=== PATIENT | male | born 1960 | race Caucasian/White ===

== ENCOUNTER 2023-12-24 16:44 | Outpatient (CLI) | payer MEDICAID | END 2023-12-24 23:59 | disposition home or self-care (01) | LOC: RAD 16:44 | PROVIDERS: ATTEND Nurse Practitioner Family | DX: R05.3 Chronic cough (principal); I70.0 Atherosclerosis of aorta | CPT/HCPCS: 71046 ==

== ENCOUNTER 2024-04-27 02:37 | Emergency (ER) | payer MEDICAID ==
[~2024-04-27] VITALS: Ht 180.3 cm; Wt 72.5 kg
[2024-04-27 02:40] VITALS: TEMP 98.8
[2024-04-27 03:14] LABS: BASOPHILS # (AUTO) 0.1 X10'3 (0-0.2); BASOPHILS % (AUTO) 0.7 % (0-1); EOSINOPHILS # (AUTO) 0.8 X10'3 (0-0.9); HEMOGLOBIN 15.3 g/dl (14.0-17.9); LYMPHOCYTES # (AUTO) 1.7 X10'3 (1.1-4.8); LYMPHOCYTES % (AUTO) 18.9 % (21-51); MEAN CORPUSCULAR HEMOGLOBIN 31.9 PG (27.0-31.0); MEAN CORPUSCULAR HGB CONC 33.2 g/dL (33.0-36.5); MEAN CORPUSCULAR VOLUME 96.1 FL (78-98); MEAN PLATELET VOLUME 7.4 FL (7.4-10.4); MONOCYTES % (AUTO) 11.1 % (2-12); NEUTROPHILS # (AUTO) 5.3 X10'3 (1.8-7.7); NEUTROPHILS % (AUTO) 60.3 % (42-75); PLATELET COUNT 266 X10'3 (140-440); RED BLOOD COUNT 4.79 X10'6 (4.70-6.10); RED CELL DISTRIBUTION WIDTH 14.8 % (11.5-14.5); WHITE BLOOD COUNT 8.8 X10'3 (4.5-11.0)
[2024-04-27 03:31] LABS: ALBUMIN 3.7 G/DL (3.4-5.0); ANION GAP 13 (8-16); BLOOD UREA NITROGEN 24 MG/DL (7-18); CALCIUM 8.8 MG/DL (8.5-10.1); CHLORIDE 105 MMOL/L (99-107); GLUCOSE 104 MG/DL (70-104); PRO BRAIN NATRIURETIC PEPTIDE 68 PG/ML (0-125); SODIUM 143 MMOL/L (135-145); TOTAL CARBON DIOXIDE 24.6 MMOL/L (24-32); eCRCL 79 ML/MIN; eGFR 76 ML/MIN
[2024-04-27 05:30] VITALS: BP 132/75; PULSE 85; RESP 15; O2SAT 94
[2024-04-27] MEDS ORDERED: FURO-150 PO (06:00)
[2024-04-27] MEDS ORDERED: CEPH-585 PO (06:00)
[2024-04-27] MEDS: cephalexin 250mg capsule PO ONE (06:07)
[2024-05-01] MEDS ORDERED: CEPH500C2 PO (10:14)
[2024-05-01] MEDS ORDERED: FURO20TA4 PO (10:14)
== END 2024-04-27 06:14 | disposition home or self-care (01) ==
LOC: ER 02:37
DX: L03.116 Cellulitis of left lower limb (principal); I49.8 Other specified cardiac arrhythmias
CPT/HCPCS: 36415; 71045; 80048; 83880; 84145; 85025; 93005; 93971; 99285

== ENCOUNTER 2024-05-07 11:16 | Day surgery (SDC) | payer MEDICAID ==
[2024-05-01 10:11] LABS: BASOPHILS % (AUTO) 0.5 % (0-1); EOSINOPHILS # (AUTO) 0.9 X10'3 (0-0.9); EOSINOPHILS % (AUTO) 11.7 % (0-6); HEMATOCRIT 49.1 % (42.0-52.0); HEMOGLOBIN 16.1 g/dl (14.0-17.9); LYMPHOCYTES # (AUTO) 1.7 X10'3 (1.1-4.8); LYMPHOCYTES % (AUTO) 21.3 % (21-51); MEAN CORPUSCULAR HEMOGLOBIN 31.6 PG (27.0-31.0); MEAN CORPUSCULAR HGB CONC 32.9 g/dL (33.0-36.5); MEAN CORPUSCULAR VOLUME 96.2 FL (78-98); MEAN PLATELET VOLUME 7.4 FL (7.4-10.4); MONOCYTES # (AUTO) 0.8 X10'3 (0-0.9); MONOCYTES % (AUTO) 10.6 % (2-12); NEUTROPHILS # (AUTO) 4.5 X10'3 (1.8-7.7); NEUTROPHILS % (AUTO) 55.9 % (42-75); PLATELET COUNT 326 X10'3 (140-440); RED CELL DISTRIBUTION WIDTH 14.7 % (11.5-14.5)
[2024-05-01 10:29] LABS: ALANINE AMINOTRANSFERASE 28 U/L (12-78); ALBUMIN 3.9 G/DL (3.4-5.0); ALBUMIN/GLOBULIN RATIO 0.9 (1.1-1.5); ALKALINE PHOSPHATASE 109 IU/L (46-116); ANION GAP 7 (8-16); ASPARTATE AMINO TRANSFERASE 26 U/L (10-37); BILIRUBIN,TOTAL 0.4 MG/DL (0.1-1.0); BLOOD UREA NITROGEN 29 MG/DL (7-18); BUN/CREATININE RATIO 29.3 (10.0-20.0); CALCIUM 9.1 MG/DL (8.5-10.1); CHLORIDE 103 MMOL/L (99-107); CREATININE 0.99 MG/DL (0.60-1.10); GLUCOSE 99 MG/DL (70-104); POTASSIUM 3.6 MMOL/L (3.5-5.1); SODIUM 140 MMOL/L (135-145); TOTAL CARBON DIOXIDE 29.9 MMOL/L (24-32); TOTAL PROTEIN 8.3 G/DL (6.4-8.2); eGFR 77 ML/MIN
[~2024-05-07] VITALS: Ht 180.3 cm; Wt 68.0 kg
[2024-05-07] VITALS (7 sets, daily range): BP systolic 107–131; BP diastolic 56–78; PULSE 66–90; RESP 12–16; TEMP 98.3; O2SAT 91–99
[2024-05-07] MEDS: cefazolin 2gm/D5W 100mL 100 ML IV ONE (05:30)
[~2024-05-07 11:16] MED LIST: CEPH500C2 PO; FURO20TA4 PO; HYDROcodone/acetaminophen 5mg/325mg tablet PO PRN
[2024-05-07] MEDS: famotidine 20mg tablet PO ONE (12:22)
[2024-05-07] MEDS: ringers solution, lacted 1,000 ML IV SCH (12:22)
[2024-05-07] MEDS: tamsulosin 0.4mg capsule PO ONE (12:22)
[2024-05-07] MEDS ORDERED: fentaNYL /PF 50mcg/ml 5ml ampule ONE (15:21)
[2024-05-07] MEDS ORDERED: midazolam 1 mg/ML 2ml injection ONE (15:21)
[2024-05-07] MEDS ORDERED: BUPIVACAINE liposomal/PF 13.3 MG/ML vial IM ONE ×2 (15:25→16:04)
[2024-05-07] MEDS ORDERED: BUPIVAcaine 2.5mg/ml inj 50ml vial (contains preservative) ONE (15:25)
[2024-05-07] MEDS ORDERED: BUPIVAcaine/PF 2.5mg/ml (0.25%) 10ml vial ONE (15:25)
[2024-05-07] MEDS ORDERED: LIDOcaine 1% (10mg/ml)w/preservative inj. 20ml MDV ONE (15:25)
[2024-05-07] MEDS ORDERED: ondansetron/PF 4mg/2ml inj IV PRN (15:30)
[2024-05-07] MEDS ORDERED: acetaminophen 1,000mg/100ml IV 100 ML IV ONE (15:30)
[2024-05-07] MEDS ORDERED: meperidine/PF 25mg/ml syringe IV PRN ×3 (15:30)
[2024-05-07] MEDS ORDERED: proCHLORperazine 10 MG/2 ml inj IV PRN (15:30)
[2024-05-07] MEDS ORDERED: hydrALAZINE 20mg/ml inj. IV PRN (15:30)
[2024-05-07] MEDS ORDERED: HYDROcodone/acetaminophen 5mg/325mg tablet PO PRN (15:30)
[2024-05-07] MEDS ORDERED: ringers solution, lacted 1,000 ML IV SCH (15:30)
[2024-05-07] MEDS ORDERED: sevoflurane 250ml liquid IH ONE (15:30)
[2024-05-07] MEDS ORDERED: morphine 4 MG/ML inj SYRINge IV PRN (15:30)
[2024-05-07] MEDS ORDERED: labetalol 20mg/4ml (5mg/ml) syringe IV PRN (15:30)
[2024-05-07] MEDS ORDERED: morphine 2 MG/ML inj. syringe IV PRN (15:30)
[2024-05-07] MEDS ORDERED: rocuronium 10mg/ml inj IV ONE (15:58)
[2024-05-07] MEDS ORDERED: dexamethasone sod phosphate 4mg/ml inj. ONE (15:58)
[2024-05-07] MEDS ORDERED: LIDOcaine 2% (20mg/ml) 5ml vial ONE (15:58)
[2024-05-07] MEDS ORDERED: propofol inj 20 ML IV ONE (15:58)
[2024-05-07] MEDS ORDERED: ondansetron/PF 4mg/2ml inj ONE (15:58)
[2024-05-07] MEDS: BUPIVAcaine 2.5mg/ml inj 50ml vial (contains preservative) SQ ONE (16:50)
[2024-05-07] MEDS ORDERED: glycopyrrolate 0.2mg/ml inj ONE (16:54)
[2024-05-07] MEDS ORDERED: neostigmine methylsulfate 1 MG/ML 10ml vial ONE (16:54)
== END 2024-05-07 19:53 | disposition home or self-care (01) ==
LOC: PAS 11:16
PROVIDERS: ATTEND Surgery
DX: K40.90 Unilateral inguinal hernia, without obstruction or gangrene, not specified as recurrent (principal); F17.210 Nicotine dependence, cigarettes, uncomplicated; Z79.899 Other long term (current) drug therapy; Z98.890 Other specified postprocedural states; Z82.61 Family history of arthritis; Z80.9 Family history of malignant neoplasm, unspecified
CPT/HCPCS: 36415; 49650; 80053; 82948; 85025; C1781; C9290; J0690; J1100; J2250; J2405; J2704; J2710; J3010; J3490; J7030; J7120; S2900; Z7506; Z7508; Z7512; A4215; A4314; A4338; A4340; A4618; C1758

== ENCOUNTER 2024-05-29 08:44 | Emergency (ER) | payer MEDICAID ==
[~2024-05-29] VITALS: Ht 180.3 cm; Wt 72.7 kg
[~2024-05-29 08:44] MED LIST changes: -HYDROcodone/acetaminophen 5mg/325mg tablet PO PRN
[2024-05-29] MEDS: proparacaine 0.5% ophthalmic drops 15ml RIGHTEYE ONE (10:45)
[2024-05-29] MEDS ORDERED: POLOS EACHEYE (10:57)
[2024-05-29 11:01] VITALS: BP 131/86; PULSE 82; RESP 16; TEMP 98.1; O2SAT 99
== END 2024-05-29 11:05 | disposition home or self-care (01) ==
LOC: ER 08:44
DX: T15.01XA Foreign body in cornea, right eye, initial encounter (principal); Z88.1 Allergy status to other antibiotic agents; Z88.8 Allergy status to other drugs, medicaments and biological substances; W44.8XXA Other foreign body entering into or through a natural orifice, initial encounter; Y93.89 Activity, other specified; Y92.89 Other specified places as the place of occurrence of the external cause; Y99.8 Other external cause status
CPT/HCPCS: 65220; 99284

== ENCOUNTER 2024-09-01 04:45 | Emergency (ER) | payer MEDICAID ==
[~2024-09-01] VITALS: Ht 180.3 cm; Wt 72.0 kg
[2024-09-01 04:52] VITALS: BP 161/92; PULSE 101; RESP 16; TEMP 98.2; O2SAT 97
== END 2024-09-01 06:10 ==
LOC: ER 04:46
DX: Z20.1 Contact with and (suspected) exposure to tuberculosis (principal); Z79.2 Long term (current) use of antibiotics
CPT/HCPCS: 71046; 99283

== ENCOUNTER 2025-01-02 20:02 | Emergency (ER) | payer MEDICAID ==
[~2025-01-02] VITALS: Ht 154.9 cm; Wt 75.2 kg
[~2025-01-02 20:02] MED LIST changes: -FURO20TA4 PO
[2025-01-02] MEDS: HYDROcodone/acetaminophen 5mg/325mg tablet PO ONE (20:26)
--- NOTE | 2025-01-02 20:32 | Physician Documentation ---
History of Present Illness ~ Chief Complaint: Groin Pain Stated Complaint: HERNIA Time Seen by MD: 20:15 Primary Medical Doctor: [facility] HPI R groin pain with new onset hernia. Has recent history of hernia repair here by Dr. Torres. Denies constipation, reports normal bowel movements, no fevers, no nausea/vomiting/chest pain. Medication Reconciliation Allergies: Coded Allergies: No Known Allergies (Unverified , 01/02/25) Scheduled Cephalexin (Cephalexin), 1 TAB PO BID, (Reported) Review of Systems All Other Systems at this time: Reviewed and Negative Physical Exam Vital Signs: Temperature: 98.2, Source: Oral, Heart Rate: 94, Respiratory Rate: 16, BP: 148/91, Pulse Oximetry: 98, Weight: 75.200 Physical Exam HEENT: PERRL, moist oral mucosa, EOMI GI: nondistended, soft, nontender, no guarding, no rebound; R direct inguinal hernia, easily reducible MSK: no deformity Skin: w/d/i, no rash Neuro: alert, nonfocal Psych: normal affect Progress Results/Orders Results/Orders Completed Orders - JAYLYN SWEET MD Hydrocodone/Apap 5/325mg Tab (Pelsor 5/32 (01/02/25 20:20) Medications Received in ER Medications (Trade) Dose Ordered Sig/Marcial Route PRN Reason Start Time Stop Time Status Last Admin Dose Admin (Pelsor 5/325mg tablet) 1 tab ONCE ONCE PO 01/02/25 20:20 01/02/25 20:21 DC 01/02/25 20:26 1 TAB Vital Signs 01/02/25 01/02/25 01/02/25 01/02/25 20:06 20:26 20:27 20:27 Temp 98.2 Pulse 94 84 Resp 17 16 18 18 B/P (MAP) 148/91 143/73 (96) Pulse Ox 98 97 O2 Flow Rate 0 Medical Decision Making Findings 64 year old male with R groin pain and reducible hernia. No signs of incarceration, no red flag symptoms. Counseled follow up PCP. Return precautions. Additional Comment Ddx = reducible inguinal hernia, incarcerated hernia, bowel obstruction Departure Disposition: 01 HOME / SELF CARE / HOMELESS Impression: Primary Impression: Inguinal hernia of right side without obstruction or gangrene Condition: Stable Referrals: NO PRIMARY CARE PROVIDER (PCP) Prescriptions Hydrocodone Bit/Acetaminophen 5/325 MG (Pelsor 5/325 MG) 5 Mg/325 Mg Tablet 1-2 TAB PO Q4-6 hours PRN for pain, #16 TAB Prov: JAYLYN SWEET MD 01/02/25 Education Educated: Patient, Family Educated regarding: diagnosis, treatment, prognosis, need for follow up Signature Scribe Signature: . Attestation: . JAYLYN SWEET MD January 02, 2025 20:32
[2025-01-02] MEDS ORDERED: HYDR-3965 PO (20:57)
[2025-01-02 21:08] VITALS: BP 134/80; PULSE 80; RESP 18; TEMP 97.8; O2SAT 99
== END 2025-01-02 21:13 | disposition home or self-care (01) ==
LOC: ER 20:02
DX: K40.90 Unilateral inguinal hernia, without obstruction or gangrene, not specified as recurrent (principal)
CPT/HCPCS: 99284

== ENCOUNTER 2025-01-23 19:19 | Emergency (ER) | payer MEDICAID ==
[~2025-01-23] VITALS: Ht 180.3 cm; Wt 80.5 kg
[~2025-01-23 19:19] MED LIST changes: +HYDR-3965 PO
[2025-01-23 19:28] VITALS: BP 138/80; PULSE 102; TEMP 96.8; O2SAT 96
--- NOTE | 2025-01-23 20:27 | Physician Documentation ---
History of Present Illness ~ Chief Complaint: Groin Pain Stated Complaint: "HERNIA" Time Seen by MD: 21:22 OK to notify your PCP?: Yes Primary Medical Doctor: [facility] Source: patient Mode of Arrival: POV Exam Limitations: no limitations HPI 64-year-old male with a burning pain in his right inguinal hernia for the past month Patient arrives from home with complaints of right inguinal hernia. He is able to reduce it himself and it is nonpainful when he does. He has already had surgery on his left hernia and has plans to see general surgeon Dr. Torres in a couple of weeks. Medication Reconciliation Allergies: Coded Allergies: No Known Allergies (Unverified , 01/23/25) Scheduled Cephalexin (Cephalexin), 1 TAB PO BID, (Reported) Scheduled PRN Hydrocodone Bit/Acetaminophen 5/325 MG (Amlin 5/325 MG), 1-2 TAB PO Q4-6 hours PRN for pain Review of Systems All Other Systems at this time: Reviewed and Negative Physical Exam Vital Signs: RN Vital Signs have been reviewed: Yes, Temperature: 96.8, Source: Temporal, Heart Rate: 102, Respiratory Rate: 15, BP: 138/80, Pulse Oximetry: 96, Weight: 80.500 Pulse Oximetry Reflects: adequate oxygenation Physical Exam General: Alert, no apparent distress. HEENT: PERRL, EOMI, no injection, moist mucous membranes. Neck: Full range of motion. Respiratory: Lungs clear, no respiratory distress. Chest: No accessory muscle use. Cardiovascular: Regular rate and rhythm, no murmurs. Gastrointestinal: Soft, nontender, nondistended. Bowels sounds present. Extremities: Normal range of motion, no deformity. Neurologic: Oriented x4. Psychiatric: Normal mood and affect. Skin: Normal color, warm and dry. No edema, no ecchymosis. Penile Discharge: none Glans: normal inspection Foreskin: normal inspection Shaft: normal inspection Scrotum: normal inspection Epididymis: normal inspection Testicle: normal inspection Genital Large easily reducible, tender, right inguinal hernia. Progress Results/Orders Results/Orders Vital Signs 01/23/25 19:28 Temp 96.8 Pulse 102 Resp 15 B/P (MAP) 138/80 Pulse Ox 96 Medical Decision Making Findings 64-year-old male presents with tender yet easily reducible right inguinal hernia. On exam I was able to fully reduce this although it did pop back out immediately after he sat up. He has an upcoming appointment on 02/01/[address] Torrse who did his left-sided hernia repair. This caused him using a hernia belt to help provide some extra support all he is up walking around. He agreed to pick this up at a local pharmacy. I will give him 1 Amlin while here in the department to help provide some pain relief and a prescription for 3 days. He should continue with his appointment with Dr. Torres and follow up with his primary care provider in the next 3 days. He can return back here for any new or worsening symptoms. We went over the emergent signs of hernia strangulation as this is a surgical emergency and if he is not able to reduce it himself to please be seen immediately. Departure Disposition: 01 HOME / SELF CARE / HOMELESS Impression: Primary Impression: Inguinal hernia of right side without obstruction or gangrene Condition: Stable Discharge Instructions: Hernia Additional Instructions: Please picker packer the hernia belt from your local pharmacy. Keep your appointment with Dr. Torres. Your primary care provider in the next 3 days and return back here for any new or worsening symptoms. We went over the signs of a strangulated hernia and if you are unable to reduce it herself please be seen immediately. Referrals: NO PRIMARY CARE PROVIDER (PCP) Prescriptions Hydrocodone Bit/Acetaminophen 5/325 MG (Amlin 5/325 MG) 5 Mg/325 Mg Tablet 1 TAB PO TID PRN PRN for pain for 3 Days, #9 TAB Prov: BREN JONES 01/23/25 Education Educated: Patient Educated regarding: diagnosis, treatment, prognosis, need for follow up Additional Comment Medical Screen Exam This patient recieved a medical screening examination. After reviewing the individual's medical complaints with presenting symptoms and performing an appropriate physical examination, it was determined that no emergency medical condition is present. This individual is also not a women having contractions. Signature Scribe Signature: . Attestation: Scribed for Bren Jones by Bren Lujan NP . 01/23/25 21:43 BREN JONES Jan 23, 2025 20:27
[2025-01-23] MEDS ORDERED: HYDR-3965 PO (21:41)
[2025-01-23 21:51] VITALS: RESP 16
[2025-01-23] MEDS: HYDROcodone/acetaminophen 5mg/325mg tablet PO ONE (21:51)
== END 2025-01-23 21:56 | disposition home or self-care (01) ==
LOC: ER 19:19
DX: K40.90 Unilateral inguinal hernia, without obstruction or gangrene, not specified as recurrent (principal)
CPT/HCPCS: 99283

== ENCOUNTER 2025-02-11 11:44 | Day surgery (SDC) | payer MEDICAID ==
[2025-02-05 11:35] LABS: BASOPHILS # (AUTO) 0.1 X10'3 (0-0.2); BASOPHILS % (AUTO) 1.1 % (0-1); EOSINOPHILS # (AUTO) 0.3 X10'3 (0-0.9); EOSINOPHILS % (AUTO) 3.3 % (0-6); LYMPHOCYTES # (AUTO) 1.7 X10'3 (1.1-4.8); LYMPHOCYTES % (AUTO) 21.5 % (21-51); MEAN CORPUSCULAR HEMOGLOBIN 31.4 PG (27.0-31.0); MEAN CORPUSCULAR HGB CONC 33.7 g/dL (33.0-36.5); MEAN CORPUSCULAR VOLUME 93.2 FL (78-98); MONOCYTES # (AUTO) 0.8 X10'3 (0-0.9); MONOCYTES % (AUTO) 10.4 % (2-12); NEUTROPHILS % (AUTO) 63.7 % (42-75); PRE OP HEMOGLOBIN 15.2 g/dL (14.0-17.9); PRE OP PLATELET COUNT 273 X10'3 (140-440); PRE OP WHITE BLOOD COUNT 7.9 10'3 (4.8-10.8); RED BLOOD COUNT 4.84 X10'6 (4.70-6.10); RED CELL DISTRIBUTION WIDTH 13.5 % (11.5-14.5)
[2025-02-05 11:45] LABS: ALBUMIN 3.5 G/DL (3.4-5.0); ALBUMIN/GLOBULIN RATIO 0.9 (1.1-1.5); ALKALINE PHOSPHATASE 87 IU/L (46-116); BLOOD UREA NITROGEN 19 MG/DL (7-18); BUN/CREATININE RATIO 19.6 (10.0-20.0); CALCIUM 8.3 MG/DL (8.5-10.1); CHLORIDE 105 MMOL/L (99-107); CREATININE 0.97 MG/DL (0.60-1.10); PRE OP ALT 19 U/L (30-65); PRE OP ANION GAP 8 (8-16); PRE OP AST 20 U/L (10-37); PRE OP BILIRUB, TOTAL 0.3 MG/DL (0.0-1.0); PRE OP GLUCOSE 95 MG/DL (70-104); PRE OP POTASSIUM 3.6 MMOL/L (3.4-5.1); PRE OP SODIUM 140 MMOL/L (135-145); TOTAL CARBON DIOXIDE 27.2 MMOL/L (24-32); TOTAL PROTEIN 7.2 G/DL (6.4-8.2); eGFR 78 ML/MIN
--- NOTE | 2025-02-05 11:48 | ELECTROCARDIOGRAPH REPORT ---
[facility] Test Date: 2025-02-05 Test Time: 11:44:02 Pat Name: LALIT DRIVER Department: [facility]-PRE-OP Patient ID: [facility]-[id number] Room: Gender: M Career Transition Specialist: : [id number] Requested By: LES GARCIA Order Number: [id number] Reading MD: Dr. TORREY Larkin Measurements Intervals [place] Rate: 65 P: 77 NC: 139 QRS: 75 QRSD: 87 T: 54 QT: 403 QTc: 419 Interpretive Statements Sinus rhythm Electronically Signed On 02-05-2025 19:18:[address] TORREY Larkin Please click the below link to view image of tracing.
[~2025-02-11] VITALS: Ht 180.3 cm; Wt 70.0 kg
[2025-02-11] VITALS (10 sets, daily range): BP systolic 119–143; BP diastolic 65–84; PULSE 51–82; RESP 10–22; TEMP 98.1; O2SAT 97–99
[2025-02-11] MEDS: ceFAZolin 2gm/dext,iso 50mL 50 ML IV ONE (05:30)
[~2025-02-11 11:44] MED LIST changes: -CEPH500C2 PO; -HYDR-3965 PO; +NO HOME MEDS
[2025-02-11] MEDS: famotidine 20mg tablet PO ONE (12:34)
[2025-02-11] MEDS: tamsulosin 0.4mg capsule PO ONE (12:34)
[2025-02-11] MEDS: ringers solution, lacted 1,000 ML IV SCH (12:42)
[2025-02-11] MEDS ORDERED: LIDOcaine 1% 30ml preserv. free vial ONE (13:19)
[2025-02-11] MEDS ORDERED: BUPIVAcaine 2.5mg/ml inj 50ml vial (contains preservative) ONE (13:19)
[2025-02-11] MEDS ORDERED: fentaNYL/PF 50MCG/1 ML 2ML syringe ONE (13:34)
[2025-02-11] MEDS ORDERED: midazolam 1 mg/ML 2ml injection ONE (13:36)
[2025-02-11] MEDS ORDERED: glycopyrrolate 0.2mg/ml inj ONE (13:40)
[2025-02-11] MEDS ORDERED: LIDOcaine 2% (20mg/ml) 5ml vial ONE (13:40)
[2025-02-11] MEDS ORDERED: ondansetron/PF 4mg/2ml inj ONE (13:40)
[2025-02-11] MEDS ORDERED: dexamethasone sod phosphate 4mg/ml inj. ONE (13:40)
[2025-02-11] MEDS ORDERED: propofol inj 20 ML IV ONE (13:40)
[2025-02-11] MEDS ORDERED: rocuronium 10mg/ml inj IV ONE (13:40)
[2025-02-11] MEDS ORDERED: acetaminophen 1,000mg/100ml IV 100 ML IV ONE (13:41)
[2025-02-11] MEDS: BUPIVAcaine/PF 2.5 mg/ml (0.25%) 30ml vial IJ ONE (13:45)
[2025-02-11] MEDS ORDERED: sevoflurane 250ml liquid IH ONE (13:46)
[2025-02-11] MEDS ORDERED: labetalol 20mg/4ml (5mg/ml) syringe IV ONE (13:58)
[2025-02-11] MEDS ORDERED: ringers solution, lacted 1,000 ML IV SCH (14:05)
[2025-02-11] MEDS ORDERED: ondansetron/PF 4mg/2ml inj IV PRN (14:05)
[2025-02-11] MEDS ORDERED: fentaNYL/PF 50MCG/1 ML 2ML syringe IV PRN (14:05)
[2025-02-11] MEDS ORDERED: hydrALAZINE 20mg/ml inj. IV PRN (14:05)
[2025-02-11] MEDS ORDERED: morphine 2 MG/ML inj. syringe IV PRN (14:05)
[2025-02-11] MEDS ORDERED: labetalol 20mg/4ml (5mg/ml) syringe IV PRN (14:05)
[2025-02-11] MEDS ORDERED: HYDROcodone/acetaminophen 5mg/325mg tablet PO PRN (14:50)
--- NOTE | 2025-02-11 14:59 | OPERATIVE REPORT ---
Operative Report Providers to CC: CHANCE GARCIA MD ~ Date of Procedure: Feb 11, 2025 Pre-Operative Diagnosis: Right inguinal hernia Post-Operative Diagnosis SAME as PRE-Op Procedure Performed Robotic assisted, laparoscopic right inguinal hernia repair with mesh Surgeon: Chance Garcia MD FACS Hand Tube Winder None Anesthesiologist: David Mcclendon Type of Anesthesia: General Findings: Large-sized indirect right inguinal hernia Complications None Prosthetics\Implants used: Extra-large right Dextile mesh Estimated Blood Loss: Minimal Specimen Removed: None Description of Procedure: Patient was brought to the operating room and identified by the nursing staff and the attending physician. Patient was placed supine and general anesthesia was induced. Patient's abdomen was prepped and draped in standard sterile fashion. Preoperative antibiotics were given. Supraumbilical incision was made to allow for standard Key entry technique. Laparoscope was inserted after insufflation. Bilateral, 8.5 mm robotic trochars were placed under laparoscopic guidance following administration of local anesthetic. The Mobyko robotic arm was docked to the patient and instruments placed intra-abdominally under laparoscopic visualization. The left hemipelvis was examined and showed no evidence of left inguinal hernia. There was evidence of previous preperitoneal repair on the left. An indirect hernia was identified on the right side. Hernia sac was fairly large in size. A rent was created in the peritoneum from the median umbilical fold and carried out laterally towards the anterior superior iliac spine. Preperitoneal flap was created and carried down to the symphysis pubis. The retropubic space of Retzius was developed and the bladder swept medially. Dissection was carried out laterally until an ind irect hernia sac was identified. This was large in size, extending deep into the right hemiscrotum. Hernia sac was completely dissected away from the cord structures and reduced. The critical view of the myopectineal orifice was achieved. Dissection was carried out laterally to allow space for mesh deployment. An extra-large, Dextile mesh and suture was passed intra-abdominally. Mesh was laid in the preperitoneal space covering both indirect, direct, and potential femoral and obturator hernias. Mesh laid without wrinkles or folds. 3 tacking sutures using 0 Ethibond were used to fix the mesh at the symphysis pubis, rectus abdominis, and just anterior to the anterior superior iliac spine. The peritoneal rent was then closed with running, 2/0, absorbable locking suture. [place] were retrieved. Abdomen was deflated and secondary trochars removed. Fascia at the umbilical port site was closed with 0 Vicryl sutures. Skin incisions were closed with 4-0 Monocryl sutures in a subcuticular fashion. Sterile dressings were applied. Patient was awakened and taken to the postanesthesia care unit in stable condition. Counts repoted as correct: Yes CHANCE GARCIA MD Feb 11, 2025 14:59
[2025-02-11] MEDS: morphine 4 MG/ML inj SYRINge IV PRN (15:19)
[2025-02-11] MEDS: fentaNYL/PF 50MCG/1 ML 2ML syringe IV PRN (15:37)
== END 2025-02-11 16:06 | disposition home or self-care (01) ==
LOC: PAS 11:44
PROVIDERS: ATTEND Surgery
DX: K40.90 Unilateral inguinal hernia, without obstruction or gangrene, not specified as recurrent (principal); F17.210 Nicotine dependence, cigarettes, uncomplicated; Z98.890 Other specified postprocedural states; G62.9 Polyneuropathy, unspecified; Z79.899 Other long term (current) drug therapy
CPT/HCPCS: 36415; 49650; 80053; 82948; 85025; 93005; C1781; J0131; J1100; J2003; J2250; J2270; J2405; J2704; J2710; J3010; J3490; J7030; J7120; S2900; Z7506; Z7508; Z7512; A4215; A4618